=== PATIENT | female | born 1960 | race Caucasian/White ===

== ENCOUNTER → 2020-07-30 13:12 | Outpatient (CLI) | payer OTHER, SELFPAY ==
[2020-07-30 17:23] LABS: COVID19 -Nasal RAPID Negative (Negative)
== END ==
PROVIDERS: PCP Family Medicine; Visit Provider Physician Assistant
DX: Z01.812 Encounter for preprocedural laboratory examination (principal); Z20.822 Contact with and (suspected) exposure to COVID-19
CPT/HCPCS: 87635

== ENCOUNTER 2020-08-01 09:28 | Day surgery (SDC) | payer OTHER, SELFPAY ==
--- NOTE | 2020-08-01 | PATH_ITS ---
[facility] Accession Number: [id number] . 01 Material submitted: . PART A: small bowel - SMALL BOWEL PART B: stomach - GASTRIC . 01 Clinical history: . A) RULE OUT CELIAC SPRUE . 02 Diagnosis: A. Small Bowel, Biopsy: Small bowel mucosa with no diagnostic abnormality. Negative for intraepithelial lymphocytosis or villous blunting. Negative for dysplasia and malignancy. . B. Stomach, Biopsy: Antral and body type mucosa with mild chronic gastritis. Negative for Helicobacter by immunohistochemistry. Negative for intestinal metaplasia. Negative for dysplasia and malignancy. [facility] 08/06/2020 1544 Local . 02 Electronically signed: . Carissa Man MD, Pathologist NPI- [id number] . 01 Gross description: . Part A: SMALL BOWEL: Received in formalin are multiple fragment(s) of romero, soft tissue measuring 1.0 x 0.4 x 0.1 cm in aggregate submitted entirely in 1 cassette(s) Part B: GASTRIC: Received in formalin are 4 fragment(s) of romero, soft tissue measuring 0.4 x 0.2 x 0.2 cm to 0.2 x 0.1 x 0.1 cm submitted entirely in 1 cassette(s) /JAMAR 08/02/2020 0705 Local . 02 Microscopic: . B. An immunohistochemical stain was performed to evaluate for Helicobacter organisms and is negative. The control stain showed appropriate reactivity. . * This test was developed and its performance characteristics determined by [employer] [facility]. It has not been cleared or approved by the U.S. Food and Drug Administration. The FDA has determined that such clearance or approval is not necessary. This test is used for clinical purposes. It should not be regarded as investigational or for research. . 02 Pathologist provided ICD-10: R10.13 . 02 CPT . 804386, 579447, [id number] Performed at: 01 [facility] [address] [place] [address], [place], [place] [id number] MD Dylan Santana MD Phone: [phone] Performed at: [address] [facility] [id number] [place], [place] [id number] MD Carissa Man MD Phone: [phone]
[2020-08-01 10:03] VITALS: BMI 24.5
[2020-08-01 10:15] VITALS: BP 109/70; PULSE 72; RESP 12; TEMP 36.4; O2SAT 100
[2020-08-01] MEDS: SODIUM CHLORIDE 0.9% 1,000 ML 70 ML IV (10:26)
--- NOTE | 2020-08-01 11:03 | PM.HP.1 ---
History of Present Illness History of Present Illness Date Patient Seen: 08/01/20 Time Patient Seen: 11:03 Chief complaint: SDC Narrative: Patient is a pleasant 59-year-old female who presented for EGD and colonoscopy. She was last seen in the office on April 10, 2020. Since that time she has continued to have symptoms of heartburn. She is due for screening colonoscopy. Her last colonoscopy was in 2010. 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 Hassan's was not noted at that time. Patient History Medical History (Updated 08/01/20 @ 09:51 by Linda Noel RN) Arthritis Cancer GERD (gastroesophageal reflux disease) Herniated nucleus pulposus, C5-6 right History of shingles Lateral epicondylitis of elbow Migraine Osteoporosis Parkinsons disease Surgical History (Updated 08/01/20 @ 09:51 by Linda Noel RN) Hx of mastectomy Family & Social History Family History Father Heart disease Mother Cancer Social History: household members spouse Tobacco & Substance use: Smoking Status Never smoker alcohol intake never Substance Use Type does not use Meds Home Medications and Allergies Home Medications Medication Instructions Recorded Confirmed Type carbidopa ER 23.75 mg-levodopa 95 1 cap PO TID 04/11/19 08/01/20 History mg capsule,extended release rizatriptan 10 mg tablet 10 mg PO ONCE 04/11/19 08/01/20 History mirabegron 50 mg tablet,extended 25 mg PO DAILY 08/17/19 08/01/20 History release 24 hr tamoxifen 10 mg PO DAILY 08/01/20 08/01/20 History Allergies Allergy/AdvReac Type Severity Reaction Status Date / Time Sulfa (Sulfonamide Allergy Intermediate rash Verified 08/01/20 09:56 Antibiotics) meperidine [From Demerol] AdvReac Severe headache Verified 08/01/20 09:56 morphine AdvReac Unknown Verified 08/01/20 09:56 Review of Systems Review of Systems ROS: Yes All systems reviewed with the patient and are negative except as otherwise documented Exam Vital Signs (past 8 hours): - 08/01/20 10:15 Temperature 97.6 F Pulse Rate 72 Respiratory Rate 12 Blood Pressure 109/70 Pulse Oximetry 100 Oxygen Delivery Method Room Air Const General: cooperative, healthy appearing, comfortable and well developed Nutritional Appearance: average body habitus Orientation: alert, awake and oriented x3 HENMT Head: normal to inspection, normocephalic and atraumatic Resp Effort & Inspection: normal respiratory effort and able to speak in complete sentences Auscultation: clear to auscultation bilaterally Cardio Rate: regular rate Rhythm: regular rhythm Heart Sounds: S1 normal and S2 normal GI Palpation: soft Auscultation: normal bowel sounds Extrem Right lower extremity: no edema Left lower extremity: no edema Assessment & Plan Assessment & Plan narrative: 1. Epigastric abdominal pain 2. Heartburn 3. Due for screening colonoscopy EGD and colonoscopy today, further recommendations to follow
[2020-08-01] MEDS: LIDOCAINE 4% SOLN 50 ML 20 ML TOP (11:04)
[2020-08-01] MEDS: MIDAZOLAM 5 MG/5 ML VIAL IV (11:05)
[2020-08-01] MEDS: fentaNYL 250 MCG/5 ML INJ IV (11:06)
[2020-08-01 11:39] VITALS: BP 106/56; PULSE 75; RESP 16; TEMP 36.6; O2SAT 100
--- NOTE | 2020-08-01 11:42 | PM.OP.ENDO ---
Operative Date/Time/Diagnoses Date of procedure: 08/01/20 Time of procedure: 11:09 Procedure Notes Procedure in detail: Surgeon: Kellie Araya DO Procedure: Esophagogastroduodenoscopy with biopsy and colonoscopy Preoperative diagnosis: 1. Epigastric pain 2. Heartburn 3. Screening colonoscopy Postoperative diagnosis: 1. Gastritis, biopsied to rule out H pylori 2. Rule out celiac sprue 3. Grade 2 internal hemorrhoids Medications: Conscious sedation using 4 mg IV of Midazolam and 100 mcg IV of Fentanyl (total for both procedures) Preanesthesia Assessment An H and P was performed/updated and the Px?s ASA class is 2. The procedure was discussed in detail with the patient. The potential risks and complications including infection, bleeding, missed lesions, perforation, need for surgery in case of perforation, prolonged hospital stay, and were explained. A brief question and answer period was allotted and once all questions were answered, informed consent was obtained. The patient was brought back to the procedure room and placed on standard monitoring. The patient?s vital signs were monitored continuously throughout the entire procedure. Prior to starting, a timeout was performed to confirm the patient?s identity, allergies, medications, and procedure. Procedure in detail The patient was placed in left lateral decubitus position and a bite block was inserted. The tip of the upper endoscope was placed into the mouth and advanced without difficulty under direct visualization into the esophagus. Esophagus: Normal-appearing esophagus no evidence of Hassan's esophagus Small amount of fluid within the esophagus concerning for possible dysmotility Stomach: Gastritis noted throughout the stomach, biopsied to rule out H pylori Duodenum: Normal appearing duodenum, biopsied to rule out celiac sprue Normal appearing stomach on retroflexion. This After the upper endoscopy, preparations were made for the colonoscopy. Once adequate sedation was obtained a TACHO was performed. The digital rectal examination did not reveal any palpable lesions. The tip of the colonoscope was placed in the anal canal and advanced without difficulty all the way to the cecum which was identified by the appendiceal orifice and the ileocecal valve. Due to mildly tortuous colon manual pressure was applied. She was noted to have grade 2 internal hemorrhoids on retroflexion. Colonoscopy was otherwise unremarkable. The patient tolerated the procedure well and will be brought back to the recovery area to be discharged once criteria are met. The prep was judged to be good/excellent and adequate to identify polyps less than 5 mm. The withdrawal time was 10. The total physician intraservice time was 27min. Complications There were no complications and estimated blood loss was minimal. Recommendations Resume previous diet Continue outpatient medications Follow-up pathology results Repeat colonoscopy for screening in 10 years Follow-up at our office as needed An emergency contact number was given to the patient for any complications related to the procedure
[2020-08-01 11:47] VITALS: BP 104/63; PULSE 73; RESP 16; O2SAT 99
[2020-08-01 11:54] VITALS: BP 110/58; PULSE 66; RESP 14; TEMP 36.6; O2SAT 97
[2020-08-01 11:56] VITALS: BP 113/57; PULSE 68; RESP 16; O2SAT 99
== END 2020-08-01 12:15 | disposition home or self-care (01) ==
PROVIDERS: PCP Internal Medicine; Referring Provider Student in an Organized Health Care Education/Training Program; Visit Provider Student in an Organized Health Care Education/Training Program
PROC: 0DJ08ZZ Inspection of Upper Intestinal Tract, Via Natural or Artificial Opening Endoscopic (ICD-10-PCS; CPT 43235; principal; 2020-08-01 10:30)
PROC: 0DJD8ZZ Inspection of Lower Intestinal Tract, Via Natural or Artificial Opening Endoscopic (ICD-10-PCS; CPT 45378; 2020-08-01 10:30)
DX: Z12.11 Encounter for screening for malignant neoplasm of colon (principal); R10.13 Epigastric pain; K64.1 Second degree hemorrhoids; K29.50 Unspecified chronic gastritis without bleeding
CPT/HCPCS: 43239; 45378; J2250; J3010

== ENCOUNTER → 2022-03-21 10:56 | Outpatient (CLI) | payer OTHER, SELFPAY ==
--- NOTE | 2022-03-21 10:58 | DI.RAD.S_ITS ---
PROCEDURE: XR CERVICAL SPINE 4V OR 5V INDICATIONS: NECK PAIN TECHNIQUE: 5 views of the cervical spine acquired. COMPARISON: None. FINDINGS: Bones: No fractures or dislocations to the T1 level. Mild reversal of normal cervical lordosis is seen. Degenerative endplate changes are noted at C4-5 through C6-7 levels. Oblique images demonstrate bilateral bony foraminal stenosis at C5-6 and C6-7 levels. Soft tissues: No prevertebral soft tissue swelling. IMPRESSION: Degenerative disc disease at C4-5 through C6-7 levels with suggestion of mild to moderate bilateral bony foraminal stenosis at C5-6 and C6-7 levels. No acute fracture or dislocation. Dictated by: Mack Perla M.D. on 03/21/2022 at 11:41 Approved by: Mack Perla M.D. on 03/21/2022 at 11:42
== END ==
PROVIDERS: PCP Internal Medicine; Referring Provider Physical Medicine & Rehabilitation; Visit Provider Physical Medicine & Rehabilitation
DX: M50.222 Other cervical disc displacement at C5-C6 level (principal); M50.321 Other cervical disc degeneration at C4-C5 level; M48.02 Spinal stenosis, cervical region
CPT/HCPCS: 72050

== ENCOUNTER 2022-06-05 09:00 | Outpatient (CLI) | payer OTHER, SELFPAY ==
[2022-06-05] VITALS (9 sets, daily range): BP systolic 110–189; BP diastolic 60–85; PULSE 15–73; RESP 12–22; TEMP 37; O2SAT 97–100
--- NOTE | 2022-06-05 09:03 | DI.RAD.S_ITS ---
PROCEDURE: PAIN C/T INTERLAMINAR INJECT INDICATIONS: C6-7 translaminar ELIGIO COMPARISON: None. FINDINGS: Fluoroscopic spot filming was performed to verify placement of spinal needles at the lower cervical level(s), as labeled on the films. Contrast is seen extending superiorly and inferiorly from the needle. IMPRESSION: Needle placement as above Dictated by: Je Pitts M.D. on 06/05/2022 at 11:53 Transcribed by: LB on 06/05/2022 at 11:54 Approved by: Je Pitts M.D. on 06/05/2022 at 16:50
[2022-06-05] MEDS: MIDAZOLAM 2 MG/2 ML VIAL IV (10:32)
[2022-06-05] MEDS: DEXAMETHASONE 10 MG/ML VIAL 30 MG INJ (10:36)
[2022-06-05] MEDS: IOPAMIDOL 15 ML VIAL 3 ML INJ (10:36)
[2022-06-05] MEDS: BUPIVACAINE 0.25% (PF) VIAL 2 ML INJ (10:36)
--- NOTE | 2022-06-05 10:51 | P.PCN_ITS ---
Date/Time/Diagnoses Date of procedure: 06/05/22 Time of procedure: 10:53 Pre-procedure diagnosis: 1. CERVICAL STENOSIS, 2. CERVICAL HNP WITH UPPER EXTREMITY RADICULAR FEATURES Post-procedure diagnosis: same Procedure Notes Procedure: 1. FLUORSCOPICALLY GUIDED CONTRAST CONTROLLED INTERLAMINAR EPIDURAL STEROID INJECTION - C6/7 TL ELIGIO Indications: Fariba is referred by Dr. Hook for treatment of Cervical HNP with Upper Extremity Paresthesias. Physician: Haja Majano Total Fluoroscopy time (seconds): 28 Total sedation minutes: 13 Complications: none Procedure in detail & Post-procedure care: FINDINGS Cervical Stenosis due to disc deterioration and nerve root irritation and nerve root irritation DESCRIPTION OF PROCEDURE Fluoroscopically guided, contrast-controlled C6/7 translaminar epidural steroid injection with conscious sedation. Following review of allergy and review of potential side effects and complications, including, but not necessarily limited to, infection, allergic reaction, local tissue breakdown, temporary as well as permanent nerve injury, stroke, paralysis, and possible , the patient indicated that patient understood and agreed to proceed. An informed consent document was signed by the patient, witnessed by a nurse, and placed in the patient's chart. Additionally, other treatment options including modalities, medications, and physical therapy were reviewed with the patient. After review of previous anaesthesic history and IV conscious sedation the patient was deemed safe to proceed with today?s procedure with IV conscious sedation as ASA class II designation. Safety time-out was performed to confirm patient ID, procedure to be performed and site of procedure. IV sedation was accomplished with a combination of 2mg of Versed administered by the RN after DO order, titrated to patient comfort during the course of the procedure while the patient remained responsive to all verbal commands. In the prone position, following sterile prep and drape of the cervical region, the C6/7 translaminar space was identified fluoroscopically. The skin was anesthetized via a 25-gauge 1.5-inch needle with 1% lidocaine solution. At this point, a 25-gauge, 2.5-inch short bevel spinal needle was atraumatically introduced and advanced under fluoroscopic guidance into epidural space at the C6/7 translaminar space. Depth was confirmed on lateral view. Radiological data, including multiple fluoroscopic views of the cervical spine, reveal a spinal needle at the C6/7 translaminar space. Lateral views then show placement of the needle in the epidural space. Subsequent views show contrast material flowing superiorly and inferiorly in the epidural space. DSA fluoroscopy with live contrast injection, once again, confirmed no vascular or intrathecal uptake. At this point, using loss of resistance technique with saline and air, the epidural space was entered. Following negative aspiration, injection of approximately 1.5 cc of Isovue-200 with live fluoroscopy in the AP view confirmed epidural flow in the epidural space without vascular or intrathecal uptake observed. Subsequently, a test dose of 1 cc of 1% lidocaine solution was injected and patient was observed for two minutes without signs or symptoms of complications, including abdominal pain, shortness of breath, bilateral upper or lower extremity weakness, nausea and vomiting, prior to steroid injection. At this point, 3cc or 30mg of dexamethasone was then injected without incident. The patient tolerated the procedure well without signs or symptoms of comp lications prior to being transferred to the recovery area for further monitoring, The patient was then transferred to the recovery area where they were observed for an appropriate period of time after the injection. The patient reported a VAS score of 6 prior to the procedure and a post-procedure VAS of 0. POST OP INSTRUCTIONS The patient was provided a Pain Log to continue to record their response to the target-specific procedure prior to follow-up visit with the referring provider. Additionally, specific post-injection care instructions and a contact number to our office were provided if concerns arise regarding possible complications associated with the procedure are suspected.
== END 2022-06-05 11:09 | disposition home or self-care (01) ==
PROVIDERS: PCP Internal Medicine; Referring Provider Physical Medicine & Rehabilitation; Visit Provider Physical Medicine & Rehabilitation
DX: M48.02 Spinal stenosis, cervical region (principal); M50.123 Cervical disc disorder at C6-C7 level with radiculopathy
CPT/HCPCS: 62321; 99152; J1100; J2250; J3490